=== PATIENT | female | born 1970 | race Caucasian/White ===

== ENCOUNTER 2021-05-18 07:25 | Inpatient (IN) | payer OTHER ==
[~2021-05-18] VITALS: Ht 160 cm; Wt 100.0 kg
[2021-05-18 08:47] LABS: HEMOGLOBIN 11.5 gm/dl (12.3-15.3); RED BLOOD COUNT 4.2 M/UL (4.00-5.10); WHITE BLOOD COUNT 21.7 K/UL (4.5-11.0)
[2021-05-18 14:07] LABS: HEMOGLOBIN 11.2 gm/dl (12.3-15.3); RED BLOOD COUNT 4.07 M/UL (4.00-5.10)
[2021-05-18 14:09] LABS: WHITE BLOOD COUNT 14.6 K/UL (4.5-11.0)
[2021-05-18 18:18] LABS: HEMOGLOBIN 9.3 gm/dl (12.3-15.3); WHITE BLOOD COUNT 14.8 K/UL (4.5-11.0)
[2021-05-18 18:34] LABS: RED BLOOD COUNT 3.37 M/UL (4.00-5.10)
[2021-05-18 21:25] LABS: HEMOGLOBIN 8.1 gm/dl (12.3-15.3); RED BLOOD COUNT 3.01 M/UL (4.00-5.10)
[2021-05-19 01:27] LABS: HEMOGLOBIN 6.8 gm/dl (12.3-15.3)
--- NOTE | 2021-05-19 02:05 | NUR ---
05/[address] LOCK CALLED DT CXR POST CVL REPORTING IT WAS IN THE [place] AND OOZING AT THE SITE. PER ED NOTES ED PHYSICIAN WAS AWARE. DR LOCK REPORTS TO PLACE A CONSULT FOR SURGERY. 05/18 2010 CONSULT PLACED FOR SURGERY. SPOKE TO DR ARREOLA, SHE REPORTS CVL IS OKAY TO USE. AWARE OF OOZING AT THE SITE. 05/[address] Lee AWARE OF ABG RESULTS. 05/18 2130 WARMING BLANKET APPLIED 05/18 2310 UPDATED PT DAUGHTER, ENMANUEL, VIA PHONE. ALL QUESTIONS ANSWERED. 05/19 30 MICHELLE AWARE OF CRITICAL LAB VALUES, AWARE PT CURRENTLY HAS FFP INFUSING. 05/19 130 MICHELLE AWARE HGB 6.7. ORDERS TO TRANSFUSION 1 UNIT PRBC.
[2021-05-19 04:26] LABS: RED BLOOD COUNT 2.37 M/UL (4.00-5.10)
[2021-05-19 04:28] LABS: HEMOGLOBIN 6.4 gm/dl (12.3-15.3)
[2021-05-19 07:25] LABS: HEMOGLOBIN 7.9 gm/dl (12.3-15.3)
[2021-05-19 09:17] LABS: HEMOGLOBIN 7.9 gm/dl (12.3-15.3)
== END 2021-05-19 12:04 | disposition expired | DRG 871 ==
LOC: ER1 07:25 → CDU 16:42 → CCU 19:36
PROVIDERS: Emergency Medicine; Internal Medicine; ADMIT Internal Medicine
PROC: B543ZZA Ultrasonography of Right Jugular Veins, Guidance (ICD-10-PCS; principal; 2021-05-18)
PROC: 5A1945Z Respiratory Ventilation, 24-96 Consecutive Hours (ICD-10-PCS; principal; 2021-05-18)
PROC: 04HY32Z Insertion of Monitoring Device into Lower Artery, Percutaneous Approach (ICD-10-PCS; principal; 2021-05-18)
PROC: 05HM33Z Insertion of Infusion Device into Right Internal Jugular Vein, Percutaneous Approach (ICD-10-PCS; principal; 2021-05-18)
PROC: 0BH17EZ Insertion of Endotracheal Airway into Trachea, Via Natural or Artificial Opening (ICD-10-PCS; principal; 2021-05-18)
PROC: 30233M1 Transfusion of Nonautologous Plasma Cryoprecipitate into Peripheral Vein, Percutaneous Approach (ICD-10-PCS; 2021-05-18)
PROC: 30233N1 Transfusion of Nonautologous Red Blood Cells into Peripheral Vein, Percutaneous Approach (ICD-10-PCS; 2021-05-18)
PROC: 3E03329 Introduction of Other Anti-infective into Peripheral Vein, Percutaneous Approach (ICD-10-PCS; 2021-05-18)
PROC: XW033E5 Introduction of Remdesivir Anti-infective into Peripheral Vein, Percutaneous Approach, New Technology Group 5 (ICD-10-PCS; 2021-05-18)
PROC: 3E033XZ Introduction of Vasopressor into Peripheral Vein, Percutaneous Approach (ICD-10-PCS; 2021-05-18)
PROC: 30233K1 Transfusion of Nonautologous Frozen Plasma into Peripheral Vein, Percutaneous Approach (ICD-10-PCS; 2021-05-18)
PROC: 5A12012 Performance of Cardiac Output, Single, Manual (ICD-10-PCS; 2021-05-18)
PROC: XW13325 Transfusion of Convalescent Plasma (Nonautologous) into Peripheral Vein, Percutaneous Approach, New Technology Group 5 (ICD-10-PCS; 2021-05-18)
PROC: 8E0ZXY6 Isolation (ICD-10-PCS; 2021-05-18)
DX: A41.9 Sepsis, unspecified organism (principal); D65 Disseminated intravascular coagulation [defibrination syndrome]; J80 Acute respiratory distress syndrome; U07.1 COVID-19; J12.82 Pneumonia due to coronavirus disease 2019; N17.0 Acute kidney failure with tubular necrosis; J15.9 Unspecified bacterial pneumonia; E87.2 Acidosis; N39.0 Urinary tract infection, site not specified; I24.8 Other forms of acute ischemic heart disease; R57.9 Shock, unspecified; B17.9 Acute viral hepatitis, unspecified; Z66 Do not resuscitate; I46.2 Cardiac arrest due to underlying cardiac condition; I10 Essential (primary) hypertension; E11.65 Type 2 diabetes mellitus with hyperglycemia; D64.9 Anemia, unspecified
CPT/HCPCS: 31500; 36415; 36430; 36556; 36600; 43752; 51702; 71045; 80048; 80053; 80076; 81001; 82009; 82550; 82553; 82728; 82803; 82962; 83036; 83605; 83615; 83735; 83880; 84100; 84484; 85014; 85018; 85025; 85379; 85384; 85610; 85652; 85730; 86140; 86850; 86900; 86901; 86920; 86927; 87040; 87086; 92950; 93005; 94002; 94003; 94640; 94760; 99291; 99292; C1751; C1894; C9113; J0696; J1100; J1265; J2185; J2270; J3370; J7030; J7040; J7050; J7070; P9012; P9016; P9017